=== PATIENT | male | born 1950 | race Caucasian/White ===

== ENCOUNTER 2017-08-02 10:32 | Emergency (ER) | payer MEDICARE, OTHER ==
[2017-08-02] MEDS ORDERED: NITROGLYCERIN 0.4MG SL TABLET #25 BTL SL ONE (11:04)
[2017-08-02 11:27] LABS: BASO % 0.4 % (0-6); GRAN % 50.5 % (47-80); HEMATOCRIT 47.2 % (42.0-52.0); HEMOGLOBIN 16.2 gm/dl (14.0-18.0); LYMPH % 30.2 % (16-45); MEAN CELL VOLUME 91.1 fl (81-97); MEAN CORPUSCULAR HEMOGLOBIN 31.3 pg (27-33); MEAN CORPUSCULAR HGB CONC 34.3 g/dl (32-36); MEAN PLATELET VOLUME 9.3 fl (7.4-10.4); MONO % 14.9 % (0-9); PLATELET COUNT 191 K/uL (130-400); RED BLOOD COUNT 5.18 M/uL (4.40-5.70); RED CELL DISTRIBUTION WIDTH 12.2 % (11.5-14.5); WHITE BLOOD COUNT W/O DIFF 5.2 K/uL (4.2-12.2)
[2017-08-02 11:40] LABS: BLOOD UREA NITROGEN 29 mg/dL (8-23); CREATININE 1.2 mg/dL (0.7-1.2); EST GLOMERULAR FILTRATION RATE > 60 mL/min
[2017-08-02] MEDS: ASPIRIN 81 MG CHEWABLE TABLET PO ONE (11:40)
[2017-08-02 11:43] LABS: GLUCOSE,RANDOM 95 mg/dL (74-109)
[2017-08-02 11:46] LABS: CREATINE PHOSPHOKINASE 63 U/L (39-308)
[2017-08-02 11:47] LABS: CKMB 2.5 ng/mL (<6.73)
--- NOTE | 2017-08-02 13:14 | Emergency Department Record ---
History of Present Illness - General Chief Complaint: Hypertension Stated Complaint: HYPERTENSION, ARM PAIN Time Seen by Provider: 08/02/17 10:50 Source: Patient Mode of Arrival: Ambulatory Limitations: No limitations - History of Present Illness Initial Comments: pt was out in the field picking up rocks when he developed bilateral arm pain. it felt like his previous cardiac pain. it lasted 60minutes. it is gone now.he has had 13 stents. the last one was 3 yrs ago. he is under a lot of stress MD Complaint: Other Onset/Timin -: Hour(s) Timing: Sudden onset History of Same: Yes Severity: Moderate Improves With: Nothing Worsens With: Nothing Associated Symptoms: Other (arm pain) - [place] Coma Scale Eye Response: (4) Open spontaneously Motor Response: (6) Obeys commands Verbal Response: (5) Oriented [place] Total: 15 - Symptoms of Stroke Baseline State: Baseline State - Related Data Allergies Allergy/AdvReac Type Severity Reaction Status Date / Time No Known Drug Allergies Allergy Verified 08/02/17 10:44 Travel Screening - Travel/Exposure Within Last 30 Days Have you traveled within the last 30 days?: No - Travel/Exposure Within Last Year Have you traveled outside the [place] in the last year?: No - Additonal Travel Details Have you been exposed to anyone with a communicable illness?: No - Travel Symptoms Symptom Screening: None Past Medical History - SOCIAL HISTORY Smoking Status: Never smoker Alcohol Use: None Drug Use: None - RESPIRATORY Hx Respiratory Disorders: No - CARDIOVASCULAR Hx Cardio Disorders: Yes Hx Cardiac Cath: Yes (13 stents total) Hx Heart Attack: Yes (4 yrs ago) Hx Hypertension: Yes Comment:: Dr Rudolph [facility] [place] Hx Neuro Disorders: No - GI Hx GI Disorders: No - Hx Genitourinary Disorders: No Hx Kidney Stones: Yes - ENDOCRINE Hx Endocrine Disorders: No - MUSCULOSKELETAL Hx Musculoskeletal Disorders: No - PSYCH Hx Psych Problems: Yes Hx Anxiety: Yes - HEMATOLOGY/ONCOLOGY Hx Hematology/Oncology Disorders: No Family Medical History Any Significant Family History?: Yes Hx Heart Disease: Father Physical Exam - General General Appearance: Alert, Oriented x3, Cooperative, Mild distress - Head Head exam: Normal inspection - Eye Eye exam: Normal appearance, PERRL, EOMI Pupils: Normal accommodation - ENT ENT exam: Normal exam, Mucous membranes moist, Normal external ear exam, Normal orophraynx Ear exam: Normal external inspection. negative: External canal tenderness Nasal Exam: Normal inspection. negative: Discharge, Sinus tenderness Mouth exam: Normal external inspection, Tongue normal Teeth exam: Normal inspection. negative: Dental caries Throat exam: Normal inspection. negative: Tonsillar erythema, Tonsillar exudate - Neck Neck exam: Normal inspection, Full ROM. negative: Tenderness - Respiratory Respiratory exam: Normal lung sounds bilaterally. negative: Respiratory distress - Cardiovascular Cardiovascular Exam: Regular rate, Normal rhythm, Normal heart sounds - GI/Abdominal GI/Abdominal exam: Soft, Normal bowel sounds. negative: Tenderness - Rectal Rectal exam: Deferred - exam: Deferred - Extremities Extremities exam: Normal inspection, Full ROM, Normal capillary refill. negative: Tenderness - Back Back exam: Reports: Normal inspection, Full ROM. Denies: Muscle spasm, Rash noted, Tenderness - Neurological Neurological exam: Alert, CN II-XII intact, Normal gait, Oriented X3 - Psychiatric Psychiatric exam: Normal affect, Normal mood - Skin Skin exam: Dry, Intact, Normal color, Warm Course Vital Signs 08/02/17 08/02/17 10:35 11:41 Temperature 97.7 F Pulse Rate 57 L Pulse Rate [ 52 L [place] ] Respiratory 18 16 Rate Blood Pressure 160/89 Blood Pressure 120/67 [Left Arm] Pulse Ox 100 98 Medical Decision Making - Lab Data Result diagrams: 08/02/17 10:50 08/02/17 10:50 Lab Results 08/02/17 08/02/17 Range/Units 10:50 10:50 WBC 5.2 (4.2-12.2) K/uL RBC 5.18 (4.40-5.70) M/uL Hgb 16.2 (14.0-18.0) gm/dl Hct 47.2 (42.0-52.0) % MCV 91.1 (81-97) fl MCH 31.3 (27-33) pg MCHC 34.3 (32-36) g/dl RDW 12.2 (11.5-14.5) % Plt Count 191 (130-400) K/uL MPV 9.3 (7.4-10.4) fl Gran % 50.5 (47-80) % Lymphocytes % 30.2 (16-45) % Monocytes % 14.9 H (0-9) % Eosinophils % 4.0 (0-6) % Basophils % 0.4 (0-6) % Sodium 144 (136-145) mmol/L Potassium 4.6 H (3.4-4.5) mmol/L Chloride 103 (98-107) mmol/L Carbon Dioxide 25.0 (22-29) mmol/L Anion Gap 16.0 (7-16) BUN 29 H (8-23) mg/dL Creatinine 1.2 (0.7-1.2) mg/dL Estimated GFR > 60 mL/min Random Glucose 95 (74-109) mg/dL Calcium 9.2 (8.8-10.2) mg/dL Creatine Kinase 63 (39-308) U/L CK-MB (CK-2) 2.5 (<6.73) ng/mL Troponin T < 0.010 (0-0.010) ng/mL Disposition Disposition: Transfer Clinical Impression: Unstable angina Disposition: Acute Care Hospital Transfer Transfer To: [facility] 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
[2017-08-02] MEDS: LORAZEPAM 2 MG/ML VIAL IV ONE (13:18)
--- NOTE | 2017-08-04 08:17 | RADIOLOGY REPORT ---
EXAM: CHEST, TWO VIEWS HISTORY: CHEST PAIN. TECHNIQUE: Two views of the chest were obtained. Comparison: Chest x-ray 07/24/14. FINDINGS: Frontal and lateral views of the chest show slightly decreased lung volumes with linear advance of subsegmental atelectasis in the lung bases. The cardiac silhouette size is within normal limits. No pulmonary vascular congestion. No pleural effusion or pneumothorax. The bony structures are unremarkable. IMPRESSION: THERE IS MINIMAL SUBSEGMENTAL ATELECTASIS IN THE LUNG BASES. [facility]: [id number] [facility]
== END 2017-08-02 14:55 | disposition short-term general hospital (02) ==
LOC: ER 10:32
DX: I20.0 Unstable angina (principal); I10 Essential (primary) hypertension; I25.2 Old myocardial infarction
CPT/HCPCS: 99285 ×2; 96374; 82550; 85025; 82553; 80048; 84484; 71046; 93005; 93010; J2060